=== PATIENT | female | born 1980 | race Caucasian/White ===

== ENCOUNTER 2021-04-05 14:40 | Outpatient (CLI) | payer OTHER ==
--- NOTE | 2021-04-06 08:02 | Ultrasound Report ---
ULTRASOUND OF BOTH AXILLA: 04/05/2021 CLINICAL: Pain in bilateral axilla. Comparison is made to exam dated: 03/03/2021 breast [facility]. Color flow ultrasound of the right axilla and ultrasound of the left axilla was performed. Almanzar scal e images of the real-time examination were reviewed. Normal-appearing bilateral lymph nodes are present. IMPRESSION: BENIGN There is no sonographic evidence of malignancy. Clinical followup is recommended. Return to annual mammogram screening schedule is recommended. This exam was interpreted at Station ID: [id number]. Electronically Signed By: Nayan Ga acr/:04/05/2021 16:05:35 Ultrasound BI-RADS: 2 Benign BI-RADS CATEGORY: (2) - 2 RECOMMENDATION: (ANNUAL) - Recommend routine annual screening mammography. [id number] return to screening LATERALITY: (B)
== END 2021-04-05 14:41 | disposition home or self-care (01) ==
LOC: DI 14:40
PROVIDERS: ATTEND Surgery
DX: R59.0 Localized enlarged lymph nodes (principal); M79.622 Pain in left upper arm; M79.621 Pain in right upper arm

== ENCOUNTER 2021-12-21 08:00 | Outpatient (CLI) | payer OTHER ==
[2021-12-21 17:00] LABS: MUDS CUTOFF CONCENTRATIONS CUTOFF CONC BELOW:
[2021-12-21 20:41] LABS: BASOPHILS % (AUTO) 0.5 %; EOSINOPHILS # (AUTO) 0.1 10^3/uL (0.0-0.7); EOSINOPHILS % (AUTO) 1.5 %; HCT - HEMATOCRIT 39.3 % (37.0-47.0); HGB - HEMOGLOBIN 12.4 g/dL (12.0-16.0); LYMPHOCYTES # (AUTO) 2.6 10^3/uL (1.5-3.5); MEAN CORPUSCULAR HEMOGLOBIN 29.7 pg (27.0-31.0); MEAN CORPUSCULAR HGB CONC 31.6 g/dL (32.0-36.0); MEAN PLATELET VOLUME 10.5 fL (7.9-10.8); MONOCYTES # (AUTO) 0.5 10^3/uL (0.0-1.0); MONOCYTES % (AUTO) 5.8 %; NEUTROPHILS # (AUTO) 4.9 10^3/uL (1.5-6.6); PLT - PLATELET COUNT 331 10^3/uL (130-450); RED BLOOD COUNT 4.18 10^6/uL (4.20-5.40); RED CELL DISTRIBUTION WIDTH 13.2 % (12.0-15.0); WHITE BLOOD COUNT 8.2 x10^3/uL (4.8-10.8)
[2021-12-21 20:53] LABS: ALBUMIN 4.1 g/dL (3.2-5.5); ALBUMIN/GLOBULIN RATIO 1.4 (1.0-2.2); BILIRUBIN,TOTAL 0.4 mg/dL (0.2-1.0); CREATININE 0.6 mg/dL (0.4-1.0); POTASSIUM 3.7 mmol/L (3.5-5.0)
[2021-12-21 20:54] LABS: AMPHETAMINE SCREEN,URINE NEGATIVE (NEGATIVE); BARBITURATE SCREEN,UR NEGATIVE (NEGATIVE); BENZODIAZEPINES SCREEN, URINE NEGATIVE (NEGATIVE); COCAINE SCREEN URINE NEGATIVE (NEGATIVE); METHADONE SCREEN, URINE NEGATIVE (NEGATIVE); METHAMPHETAMINES SCREEN, URINE NEGATIVE (NEGATIVE); OPIATE SCREEN, URINE NEGATIVE (NEGATIVE); OXYCODONE SCREEN, URINE NEGATIVE (NEGATIVE); PROPOXYPHENE SCREEN, URINE NEGATIVE (NEGATIVE); THC CANNABINOID SCREEN, URINE NEGATIVE (NEGATIVE); TRICYCLIC ANTIDEPRESSANT,URINE NEGATIVE (NEGATIVE)
[2021-12-21 21:08] LABS: ESTIMATED AVERAGE GLUCOSE 111 mg/dL (70-100); HEMOGLOBIN A1c% 5.5 % (4.27-6.07)
[2021-12-21 21:13] LABS: FREE T4 (FREE THYROXINE) 0.75 ng/dL (0.58-1.64); THYROID STIMULATING HORMONE 1.07 uIU/mL (0.34-5.60)
[2021-12-21 21:40] LABS: FOLLICLE STIMULATING HORMONE 6.47 mIU/mL
[2021-12-21 21:41] LABS: LUTEINIZING HORMONE 4.83 mIU/mL
[2021-12-23 05:10] LABS: VITAMIN D 25-HYDROXY 20.4 ng/mL (30.0-100.0)
[2021-12-23 07:09] LABS: PROGESTERONE 0.5 ng/mL (.)
== END 2021-12-21 23:59 | disposition home or self-care (01) ==
LOC: LAB.N 08:00
PROVIDERS: ATTEND Registered Nurse
DX: R53.83 Other fatigue (principal); N95.1 Menopausal and female climacteric states; R42 Dizziness and giddiness
CPT/HCPCS: 36415; 80053; 80306; 82306; 82607; 83001; 83002; 83036; 84144; 84403; 84439; 84443; 85025

== ENCOUNTER 2022-01-31 07:00 | Outpatient (CLI) | payer OTHER ==
--- NOTE | 2022-01-31 22:39 | XRAY Report ---
PROCEDURE: Chest 2 View X-Ray INDICATIONS: COUGH TECHNIQUE: 2 views of the chest were acquired. COMPARISON: None. FINDINGS: Surgical changes and devices: None. Lungs and pleura: No pleural effusions or pneumothorax. Lungs are clear. Mediastinum: Mediastinal contours are normal. Heart size is normal. Bones and chest wall: No suspicious bony abnormalities. Soft tissues appear unremarkable. IMPRESSION: No acute cardiopulmonary process demonstrated radiographically. Reviewed by: Lorne Dodd MD on 01/31/2022 10:37 PM [facility] Approved by: Lorne Dodd MD on 01/31/2022 10:37 PM [facility] Station ID: [id number]
== END 2022-01-31 23:59 | disposition home or self-care (01) ==
LOC: DI.N 07:00
PROVIDERS: ATTEND Registered Nurse
DX: R05.1 Acute cough (principal)

== ENCOUNTER 2022-05-13 16:30 | Outpatient (CLI) | payer OTHER | END 2022-05-13 23:59 | disposition home or self-care (01) | LOC: LAB.N 16:30 | PROVIDERS: ATTEND Registered Nurse | DX: Z11.1 Encounter for screening for respiratory tuberculosis (principal) | CPT/HCPCS: 81599; 86480 ==

== ENCOUNTER 2022-06-07 13:30 | Outpatient (CLI) | payer OTHER ==
[2022-06-07 17:58] LABS: BASOPHILS % (AUTO) 0.5 %; EOSINOPHILS # (AUTO) 0.1 10^3/uL (0.0-0.7); EOSINOPHILS % (AUTO) 1.3 %; HCT - HEMATOCRIT 37.9 % (37.0-47.0); LYMPHOCYTES # (AUTO) 2.8 10^3/uL (1.5-3.5); LYMPHOCYTES % (AUTO) 36.2 %; MEAN CORPUSCULAR HEMOGLOBIN 29.1 pg (27.0-31.0); MEAN CORPUSCULAR HGB CONC 31.7 g/dL (32.0-36.0); MEAN PLATELET VOLUME 10.4 fL (7.9-10.8); MONOCYTES # (AUTO) 0.5 10^3/uL (0.0-1.0); MONOCYTES % (AUTO) 6.9 %; NEUTROPHILS # (AUTO) 4.2 10^3/uL (1.5-6.6); NEUTROPHILS % (AUTO) 54.6 %; PLT - PLATELET COUNT 312 10^3/uL (130-450); RED BLOOD COUNT 4.12 10^6/uL (4.20-5.40); RED CELL DISTRIBUTION WIDTH 14.1 % (12.0-15.0); WHITE BLOOD COUNT 7.7 x10^3/uL (4.8-10.8)
[2022-06-07 18:08] LABS: ALBUMIN 4.2 g/dL (3.2-5.5); ALBUMIN/GLOBULIN RATIO 1.4 (1.0-2.2); ALKALINE PHOSPHATASE 62 IU/L (42-121); ALT ALANINE AMINOTRANSFERASE 18 IU/L (10-60); AST ASPARTATE AMINOTRANSFERASE 16 IU/L (10-42); BILIRUBIN,TOTAL 0.5 mg/dL (0.2-1.0); BUN - BLOOD UREA NITROGEN 15 mg/dL (6-20); CALCIUM 9.2 mg/dL (8.5-10.3); CARBON DIOXIDE - CO2 25 mmol/L (21-32); CHLORIDE 103 mmol/L (101-111); CREATININE 0.5 mg/dL (0.4-1.0); GFR - MDRD 136 (>89); GLUCOSE 88 mg/dL (70-100); SODIUM 134 mmol/L (135-145); TOTAL PROTEIN 7.2 g/dL (6.7-8.2)
[2022-06-07 18:13] LABS: THYROID STIMULATING HORMONE 1.68 uIU/mL (0.34-5.60)
[2022-06-07 18:15] LABS: CRP - C-REACTIVE PROTEIN < 1.0 mg/dL (0-1.0)
== END 2022-06-07 13:45 | disposition home or self-care (01) ==
LOC: LAB.N 13:30
PROVIDERS: ATTEND Registered Nurse
DX: S16.1XXA Strain of muscle, fascia and tendon at neck level, initial encounter (principal); R55 Syncope and collapse; M54.2 Cervicalgia; M62.830 Muscle spasm of back
CPT/HCPCS: 36415; 80053; 84443; 85025; 85651; 86140

== ENCOUNTER 2022-11-20 07:53 | Outpatient (CLI) | payer OTHER ==
--- NOTE | 2022-11-20 09:24 | XRAY Report ---
PROCEDURE: Cervical Spine 2 View INDICATIONS: NEAR SYNCOPE NECK PAIN TECHNIQUE: 3 view(s) of the cervical spine were acquired. COMPARISON: CXR 01/31/2022. FINDINGS: Bones: No fractures or dislocations to the T1 level. The lateral masses of C1 appear intact on the odontoid view. No suspicious bony lesions. Prominent osteophyte at C6 inferior endplate. Disc space height loss at C6-C7. Soft tissues: No prevertebral soft tissue swelling. IMPRESSION: No acute osseous abnormality demonstrated. Mild degenerative change at C6-C7. Reviewed by: Victoriano Hinkle MD on 11/20/2022 9:23 AM PDT Approved by: Victoriano Hinkle MD on 11/20/2022 9:23 AM PDT Station ID: [id number]
--- NOTE | 2022-11-20 09:28 | XRAY Report ---
PROCEDURE: Sacrum/Coccyx INDICATIONS: COCCYX PAIN TECHNIQUE: 3 views of the sacrum and coccyx acquired. COMPARISON: None. FINDINGS: Bones: No fractures identified. No dislocations. Anterolisthesis of L5 on S1 measuring 0.7 cm. No wilcox spicious bony lesions. Soft tissues: Visualized bowel gas pattern is normal. No suspicious soft tissue densities. IMPRESSION: No acute bony abnormality identified. Grade 1 anterolisthesis of L5 on S1. Reviewed by: Victoriano Hinkle MD on 11/20/2022 9:26 AM PDT Approved by: Victoriano Hinkle MD on 11/20/2022 9:26 AM PDT Station ID: [id number]
--- NOTE | 2022-11-20 09:29 | XRAY Report ---
PROCEDURE: Elbow 3 View BILAT INDICATIONS: ELBOW JOINT PAIN TECHNIQUE: 3 views of the elbow were acquired. COMPARISON: None. FINDINGS: Bones: No fractures or dislocations. No suspicious bony lesions. Soft tissues: No effusion. No suspicious soft tissue calcifications or masses. IMPRESSION: No acute bony abnormality. No joint effusion. Reviewed by: Victoriano Hinkle MD on 11/20/2022 9:28 AM PDT Approved by: Victoriano Hinkle MD on 11/20/2022 9:28 AM PDT Station ID: [id number]
== END 2022-11-20 07:54 | disposition home or self-care (01) ==
LOC: DI 07:53
PROVIDERS: ATTEND Registered Nurse
DX: M25.522 Pain in left elbow (principal); M25.521 Pain in right elbow; M53.3 Sacrococcygeal disorders, not elsewhere classified; R55 Syncope and collapse; S16.1XXA Strain of muscle, fascia and tendon at neck level, initial encounter; M62.830 Muscle spasm of back; M43.17 Spondylolisthesis, lumbosacral region; M47.812 Spondylosis without myelopathy or radiculopathy, cervical region